=== PATIENT | female | born 1965 | race Caucasian/White ===

== ENCOUNTER 2017-02-25 14:32 | Emergency (ER) | payer OTHER ==
[~2017-02-25] VITALS: Ht 160 cm; Wt 78.5 kg
[~2017-02-25 14:32] MED LIST: COZ50 PO; MONT10TA35 PO; NIFE60TE8 PO
[2017-02-25 14:37] VITALS: BP 138/101
--- NOTE | 2017-02-25 14:37 | NUR ---
Pt w/c assisted to bed 8.
--- NOTE | 2017-02-25 14:41 | NUR ---
51/F c/o left knee pain x 1 day, started yesterday. Denies injury or trauma. Pt is scheduled to have a knee replacement 04/09/17. Pt states "My knee locked and I can't take the pain." AOX4. VSS.
--- NOTE | 2017-02-25 14:54 | NUR ---
Dr. Liang evaluating patient at bedside.
[2017-02-25] MEDS ORDERED: KETOROLAC 60 MG/2 ML VIAL IM ONE (15:00)
[2017-02-25 16:30] VITALS: BP 158/102
--- NOTE | 2017-02-25 16:31 | NUR ---
Patient discharged with v/s stable. Written and verbal after care instructions given and explained. Patient alert, oriented and verbalized understanding of instructions. Wheel Chair Assisted with by parent. All questions addressed prior to discharge. ID band removed. Patient advised to follow up with PMD. Rx of NORCO AND NAPROSYN given. Patient educated on indication of medication including possible reaction and side effects. Opportunity to ask questions provided and answered.
== END 2017-02-25 16:31 | disposition home or self-care (01) ==
LOC: MED 14:32
DX: M25.462 Effusion, left knee (principal); M17.12 Unilateral primary osteoarthritis, left knee; I10 Essential (primary) hypertension
CPT/HCPCS: 96372; 99283; J1885

== ENCOUNTER 2020-03-13 18:23 | Emergency (ER) | payer OTHER ==
[~2020-03-13] VITALS: Ht 160 cm; Wt 81.6 kg
[~2020-03-13 18:23] MED LIST changes: -COZ50 PO; +LOSA50TA57 PO; +NIFE60TA39 PO; -NIFE60TE8 PO
[2020-03-13 18:27] VITALS: BP 150/105
--- NOTE | 2020-03-13 18:41 | NUR ---
WAIT AT LOBBY.
[2020-03-13 19:49] LABS: BASOPHILS % (AUTO) 0.5 % (0.0-2.0); EOSINOPHILS # (AUTO) 0.3 K/uL (0-0.4); HEMATOCRIT 38.6 % (36-48); HEMOGLOBIN 12.9 g/dL (12.0-16.0); LYMPHOCYTES # (AUTO) 2.2 K/uL (2.5-16.5); LYMPHOCYTES % (AUTO) 33.6 % (20.5-51.1); MEAN CORPUSCULAR HEMOGLOBIN 29 pg (27-31); MEAN CORPUSCULAR HGB CONC 34 g/dL (33-37); MEAN CORPUSCULAR VOLUME 87.8 fL (80-94); MONOCYTES # (AUTO) 0.7 K/uL (0.8-1.0); MONOCYTES % (AUTO) 10.5 % (1.7-9.3); NEUTROPHILS # (AUTO) 3.3 K/uL (1.8-7.7); NEUTROPHILS % (AUTO) 50.4 % (42.2-75.2); PLATELET COUNT (AUTO) 215 K/uL (140-450); RED CELL DISTRIBUTION WIDTH 13.9 % (11.6-13.7); WHITE BLOOD COUNT (AUTO) 6.6 K/uL (4.8-10.8)
[2020-03-13 20:07] LABS: ALBUMIN 3.8 g/dL (3.4-5.0); ANION GAP 11.1 (8-16); CARBON DIOXIDE 28.5 mmol/L (21-32); CREATININE 1.3 mg/dL (0.6-1.3); POTASSIUM 3.6 mmol/L (3.5-5.1); TOTAL BILIRUBIN 0.4 mg/dL (0.0-1.0)
--- NOTE | 2020-03-13 23:19 | NUR ---
TO ED 07, AMBULATORY.
--- NOTE | 2020-03-13 23:40 | NUR ---
54 Y/O FEMALE PRESENTED TO ED C/O GENERALIZED WEAKNESS X YESTERDAY PT STATES SHE WAS LAYING DOWN WATCHING TV W/ DAUGHTER AND SHE LOC X 20 SEC. PT DENIES FALLING OR HITTING HEAD. PT STATES SHE WAS OUTSIDE ALL DAY YESTERDAY AND IT WAS HOT OUT. PT STATES SHE HAS SALGADO AND NAUSEA. PT DENIES VOMITTING, FEVER, DIARRHEA , BODY ACHES , BLURRY VISION/DOUBLE VISION. PT STATES SHE IS HAVING SOB AND FEELS A PRESSURE , 8/10 PAIN ON HER CHEST. PT STATES SHE HAD TO TAKE HER EMERGENCY INHALER LAST NIGHT FOR THE SOB. PT STATES SHE HAD A SIMILAR EPISODE A "COUPLE OF YEARS AGO," BUT DOES NOT REMEMBER THE CAUSE. PT STATES SHE HAS TAKEN HER BP MEDS TODAY . PT STATES SHE TOOK EXCEEDRIN AT 1730 TODAY FOR THE PAIN. PT A.O X 4. PT BREATHING EVEN AND UNLABORED. PT RESTING IN BED , LOCKED AND IN LOWEST POSITION, HOB ELEVATED, SIDE RAIL X 2 FOR PT SAFETY. PT CONNECTED TO CLAIMS CONFIGURATION ANALYST, PULSE OX AND BP CUFF. PMH: HTN, MS X 6 YRS AGO, ASTHMA , RX: LOSARTAN NKA
--- NOTE | 2020-03-13 23:57 | NUR ---
Dr. Sanders examining patient.
[2020-03-14 01:50] VITALS: BP 116/64
--- NOTE | 2020-03-14 01:50 | NUR ---
Patient discharged with v/s stable. Written and verbal after care instructions given and explained. Patient verbalized understanding. Ambulatory with steady gait. All questions addressed prior to discharge. Advised to follow up with PMD.
== END 2020-03-14 01:50 | disposition home or self-care (01) ==
LOC: MED 18:23
DX: R55 Syncope and collapse (principal); I10 Essential (primary) hypertension; I46.9 Cardiac arrest, cause unspecified; R79.89 Other specified abnormal findings of blood chemistry; R74.0 Nonspecific elevation of levels of transaminase and lactic acid dehydrogenase [LDH]; Z96.659 Presence of unspecified artificial knee joint
CPT/HCPCS: 36415; 71045; 80053; 84484; 85025; 93005; 99285

== ENCOUNTER 2020-04-11 18:36 | Emergency (ER) | payer OTHER ==
[~2020-04-11] VITALS: Ht 160 cm; Wt 84.8 kg
[2020-04-11 18:45] VITALS: BP 170/104
--- NOTE | 2020-04-11 18:49 | NUR ---
54 Y/O FEMALE FROM HOME C/O LLQ PAIN SINCE THIS MORNING WITH NAUSEA AND VOMITING. PT STATES SHE TOOK EXCEDRIN AT 1300 WITH NO RELIEF OF PAIN. DENIES DIARRHEA. ABD SOFT, ROUND, TENDER TO PALP. BOWEL SOUNDS PRESENT X 4 QUAD. RR EVEN AND UNLABORED. PT PRESENTS HYPERTENSIVE. 10/10 SHARP PAIN. MEDHX: HTN
--- NOTE | 2020-04-11 18:50 | NUR ---
PT AMBULATED TO RESTROOM FOR COLLECTION OF URINE
--- NOTE | 2020-04-11 19:22 | NUR ---
REPORT GIVEN TO MARIA TERESA REAVES. TRANSFER OF CARE AT THIS TIME
--- NOTE | 2020-04-11 19:23 | NUR ---
ASSUEMD CARE OF PATIENT.
[2020-04-11] MEDS ORDERED: MORPHINE SULFATE 4 MG/ML SYR IM ONE (19:30)
[2020-04-11] MEDS ORDERED: ONDANSETRON 4 MG ODT PO ONE (19:30)
--- NOTE | 2020-04-11 19:36 | NUR ---
MEDICATED ORDERED FOR PAIN AND NAUSEA. WILL CONTINUE TO ASSESS PAIN AND N/V.
--- NOTE | 2020-04-11 19:50 | NUR ---
REPORTS RELIEF OF PAIN -- 01/28 POST MORPHINE. NO ACTIVE VOMITTING SINCE ZOFRAN ADMIN.
--- NOTE | 2020-04-11 20:39 | NUR ---
Patient discharged with v/s stable. Written and verbal after care instructions given and explained. Patient alert, oriented and verbalized understanding of instructions. Ambulatory with steady gait. All questions addressed prior to discharge. ID band removed. Patient advised to follow up with PMD. Rx of ZOFRAN, NORCO, MOTRIN given. Patient educated on indication of medication including possible reaction and side effects. Opportunity to ask questions provided and answered.
== END 2020-04-11 20:39 | disposition home or self-care (01) ==
LOC: MED 18:36
DX: R10.12 Left upper quadrant pain (principal); R11.2 Nausea with vomiting, unspecified; I10 Essential (primary) hypertension; I51.89 Other ill-defined heart diseases; J45.909 Unspecified asthma, uncomplicated; Z90.711 Acquired absence of uterus with remaining cervical stump; Z90.49 Acquired absence of other specified parts of digestive tract; Z79.899 Other long term (current) drug therapy
CPT/HCPCS: 96372; 99283; J2270; Q0162

== ENCOUNTER 2020-07-07 08:01 | Emergency (ER) | payer OTHER ==
[~2020-07-07] VITALS: Ht 160 cm; Wt 84.8 kg
[2020-07-07 08:11] VITALS: BP 156/94
--- NOTE | 2020-07-07 08:15 | NUR ---
PATIENT WHEELCHAIR ASSISTED TO BED 7.
--- NOTE | 2020-07-07 08:15 | NUR ---
W/C ASSIST TO BED 07
--- NOTE | 2020-07-07 08:17 | NUR ---
55/F C/O SHARP LLQ PAIN RAD TO LEFT LOW BACK X YESTERDAY MORNING. PAIN WORSENED THIS MORNING PROMPTING PT TO COME TO ER. DENIES DYSURIA, HEMATURIA, DIARRHEA. STATES URINARY FREQUENCY (6X URINATION LAST NIGHT). STATES NAUSEA WITHOUT VOMITING. W/C ASSIST TO BED 07 FROM TRIAGE DUE TO C/O UNABLE TO AMBULATE DUE TO PAIN. STATES SHARP PAIN OF 10/10 AT THIS TIME. VSS. HX- HTN NKA
--- NOTE | 2020-07-07 08:21 | NUR ---
DR. ROSAS EVALUATING PT AT BEDSIDE
[2020-07-07] MEDS ORDERED: KETOROLAC 30 MG/ML VIAL IVP ONE (08:25)
[2020-07-07] MEDS ORDERED: ONDANSETRON 4 MG/2 ML VIAL IVP ONE (08:25)
[2020-07-07] MEDS ORDERED: NACL 0.9% 1,000 ML IV SCH (08:25)
[2020-07-07] MEDS ORDERED: MORPHINE SULFATE 4 MG/ML SYR IVP ONE (08:25)
[2020-07-07 08:46] LABS: BASOPHILS # (AUTO) 0.1 K/uL (0.00-0.22); BASOPHILS % (AUTO) 0.5 % (0.0-2.0); EOSINOPHILS # (AUTO) 0.4 K/uL (0-0.4); EOSINOPHILS % (AUTO) 3.7 % (0.0-4.0); HEMATOCRIT 39.4 % (36-48); HEMOGLOBIN 13.3 g/dL (12.0-16.0); LYMPHOCYTES # (AUTO) 2.6 K/uL (2.5-16.5); LYMPHOCYTES % (AUTO) 22.4 % (20.5-51.1); MEAN CORPUSCULAR HEMOGLOBIN 29 pg (27-31); MEAN CORPUSCULAR HGB CONC 34 g/dL (33-37); MEAN CORPUSCULAR VOLUME 84.8 fL (80-94); MONOCYTES # (AUTO) 0.9 K/uL (0.8-1.0); NEUTROPHILS # (AUTO) 7.7 K/uL (1.8-7.7); NEUTROPHILS % (AUTO) 65.4 % (42.2-75.2); PLATELET COUNT (AUTO) 223 K/uL (140-450); RED BLOOD CELL COUNT(AUTO) 4.64 MIL/uL (4.20-5.40); RED CELL DISTRIBUTION WIDTH 13.5 % (11.6-13.7); WHITE BLOOD COUNT (AUTO) 11.7 K/uL (4.8-10.8)
--- NOTE | 2020-07-07 09:11 | NUR ---
BACK TO BED [address] SCAN VIA [facility]
[2020-07-07 09:31] LABS: APPEARANCE,URINE CLEAR (CLEAR); BILIRUBIN,URINE NEGATIVE (NEGATIVE); COLOR,URINE YELLOW (YELLOW); LEUKOCYTE ESTERASE ,URINE NEGATIVE (NEGATIVE); NITRITE, URINE NEGATIVE (NEGATIVE); PH,URINE 5.5 (5.0-9.0); UGLUCOSE NEGATIVE (NEGATIVE)
[2020-07-07 09:37] LABS: ALBUMIN 4.1 g/dL (3.4-5.0); ANION GAP 17.2 (8-16); CARBON DIOXIDE 21.3 mmol/L (21-32); CREATININE 1.2 mg/dL (0.6-1.3); POTASSIUM 3.5 mmol/L (3.5-5.1); TOTAL BILIRUBIN 0.7 mg/dL (0.0-1.0)
[2020-07-07 09:46] LABS: BLOOD, URINE 1+ (NEGATIVE); RBC,URINE 0-5 /HPF (0-5); WBC,URINE 0-5 /HPF (0-5)
--- NOTE | 2020-07-07 09:56 | NUR ---
DR. ROSAS RE-EVALUATING PT AT BEDSIDE
[2020-07-07] MEDS ORDERED: metroNIDAZOLE 500 MG/NS PREMIX 100 ML IV ONE (10:05)
[2020-07-07] MEDS ORDERED: HYDROcodone/APAP 5/325 MG 1 TAB TAB PO ONE (10:05)
[2020-07-07] MEDS ORDERED: cefTRIAXone 1,000 MG VIAL ONE (10:07)
--- NOTE | 2020-07-07 12:25 | NUR ---
Patient discharged with v/s stable. Written and verbal after care instructions given and explained. Patient alert, oriented and verbalized understanding of instructions. Ambulatory with steady gait. All questions addressed prior to discharge. ID band removed. Patient advised to follow up with PMD. Rx of CIPRO, FLAGYL, COLACE, NORCO given. Patient educated on indication of medication including possible reaction and side effects. Opportunity to ask questions provided and answered.
[2020-07-07 12:26] VITALS: BP 146/80
== END 2020-07-07 12:25 | disposition home or self-care (01) ==
LOC: MED 08:01
DX: K57.92 Diverticulitis of intestine, part unspecified, without perforation or abscess without bleeding (principal); I51.89 Other ill-defined heart diseases; I10 Essential (primary) hypertension; Z79.899 Other long term (current) drug therapy; Z90.49 Acquired absence of other specified parts of digestive tract
CPT/HCPCS: 36415; 74176; 80053; 81001; 85025; 96361; 96365; 96367; 96375; 99284; J0696; J1885; J2270; J2405; J3490; J7030; 96366

== ENCOUNTER 2021-11-28 16:52 | Emergency (ER) | payer OTHER ==
[~2021-11-28] VITALS: Ht 157.5 cm; Wt 85.3 kg
[2021-11-28 16:55] VITALS: BP 153/104
--- NOTE | 2021-11-28 17:11 | NUR ---
Patient ambulated to bed 07 with steady/even gait.
--- NOTE | 2021-11-28 17:27 | NUR ---
56 y/o F BIB self from home c/o dizziness, nausea/vomiting x 2 days and intermittent headaches for the last week. Patient A&Ox4, ambulatory, reports R temporal headache 9/10, sharp/intermittent, non-radiating pain. Pt also reports 2 episodes of vomiting this morning. States dizziness worsens when sitting up/ambulating. Pt states hx of migraine headaches and states symptoms feel different from previous SALGADO symptoms. Pt denies chest pain, abdominal pain, fever, chills, diarrhea, constipation, cold-like symptoms. Denies medications prior to arrival; reports Excedrin yesterday with relief to headache. Pt compliant with BP medications. Pt placed into a gown and yeast stacker. BP 162/103. States seen at [facility] for cardiac issues that she is unable to recall. Bed locked in lowest position, side rails x 1. PMH: HTN, migraine headaches Meds: chlorthalidone, losartan NKDA Sx: R knee sx 5 yrs ago
--- NOTE | 2021-11-28 18:05 | NUR ---
Patient ambulated to restroom with steady/even gait.
--- NOTE | 2021-11-28 18:36 | NUR ---
Dr. Baez is evaluating pt at bedside
[2021-11-28] MEDS ORDERED: MECLIZINE 25 MG TAB PO ONE ×2 (18:45→21:05)
--- NOTE | 2021-11-28 18:49 | NUR ---
Lab at bedside
--- NOTE | 2021-11-28 19:05 | NUR ---
EMT at bedside for EKG
[2021-11-28 19:06] LABS: BASOPHILS # (AUTO) 0.1 K/uL (0.00-0.22); EOSINOPHILS # (AUTO) 0.2 K/uL (0-0.4); EOSINOPHILS % (AUTO) 2.8 % (0.0-4.0); HEMATOCRIT 38.7 % (36-48); LYMPHOCYTES # (AUTO) 2.1 K/uL (2.5-16.5); LYMPHOCYTES % (AUTO) 32.6 % (20.5-51.1); MEAN CORPUSCULAR HEMOGLOBIN 29 pg (27-31); MEAN CORPUSCULAR HGB CONC 34 g/dL (33-37); MEAN CORPUSCULAR VOLUME 86.7 fL (80-94); MONOCYTES # (AUTO) 0.4 K/uL (0.8-1.0); MONOCYTES % (AUTO) 6.7 % (1.7-9.3); NEUTROPHILS # (AUTO) 3.7 K/uL (1.8-7.7); NEUTROPHILS % (AUTO) 56.9 % (42.2-75.2); PLATELET COUNT (AUTO) 211 K/uL (140-450); RED BLOOD CELL COUNT(AUTO) 4.46 MIL/uL (4.20-5.40); RED CELL DISTRIBUTION WIDTH 13.5 % (11.6-13.7); WHITE BLOOD COUNT (AUTO) 6.5 K/uL (4.8-10.8)
--- NOTE | 2021-11-28 19:17 | NUR ---
Report and transfer of care endorsed to PINO Weinberg.
[2021-11-28 19:28] LABS: ALBUMIN 3.9 g/dL (3.4-5.0); ANION GAP 11.7 (8-16); CARBON DIOXIDE 27.1 mmol/L (21-32); CREATININE 1.1 mg/dL (0.6-1.3); MAGNESIUM 1.8 mg/dL (1.8-2.4); POTASSIUM 3.8 mmol/L (3.5-5.1); TOTAL BILIRUBIN 0.6 mg/dL (0.0-1.0)
[2021-11-28] MEDS ORDERED: LOSARTAN 50 MG TAB PO ONE (19:55)
[2021-11-28] MEDS ORDERED: ACETAMINOPHEN EXTRA STRENGTH 500 MG TAB PO ONE (19:55)
[2021-11-28] MEDS ORDERED: MECL-303 PO (19:59)
[2021-11-28 21:13] VITALS: BP 129/72
--- NOTE | 2021-11-28 21:13 | NUR ---
Patient discharged with v/s stable. Written and verbal after care instructions given and explained. Patient alert, oriented and verbalized understanding of instructions. Ambulatory with steady gait. All questions addressed prior to discharge. ID band removed. Patient advised to follow up with PMD. Rx of meclizine given. Opportunity to ask questions provided and answered.
== END 2021-11-28 21:13 | disposition home or self-care (01) ==
LOC: MED 16:52
DX: R42 Dizziness and giddiness (principal); R51.9 Headache, unspecified; R11.0 Nausea; I10 Essential (primary) hypertension; F32.9 Major depressive disorder, single episode, unspecified; F41.9 Anxiety disorder, unspecified; J45.909 Unspecified asthma, uncomplicated; I25.2 Old myocardial infarction; Z79.899 Other long term (current) drug therapy
CPT/HCPCS: 36415; 80053; 83735; 84484; 85025; 93005; 99285; J8597

== ENCOUNTER 2022-02-19 15:11 | Emergency (ER) | payer OTHER ==
[~2022-02-19] VITALS: Ht 160 cm; Wt 81.6 kg
[~2022-02-19 15:11] MED LIST changes: +MECL-303 PO
[2022-02-19 15:38] VITALS: BP 161/102
--- NOTE | 2022-02-19 17:03 | NUR ---
PT W/C ASSISTED TO BED 2.
--- NOTE | 2022-02-19 17:05 | NUR ---
56Y FEMALE BIB SELF C/O RIGHT HIP PAIN X 8 DAYS. PT UNABLE TO AMBULATE DUE TO PAIN. PT IS ABLE TO STAND, BUT UNABLE TO PUT PRESSURE ON R LEG. PMH: HTN, LEFT KNEE SURGERY. DENIES N/V/D; SKIN IS PINK/WARM/DRY; AAOX4 WITH EVEN . LUNGS CLEAR BL; HR EVEN AND REGULAR; PT DENIES ANY FEVER, CP, SOB, OR COUGH AT THIS TIME; PATIENT STATES PAIN OF 10/10 AT THIS TIME. PATIENT POSITIONED FOR COMFORT; HOB ELEVATED; BEDRAILS UP X1; BED DOWN. ER MD MADE AWARE OF PT STATUS.
--- NOTE | 2022-02-19 17:12 | NUR ---
Patient being evaluated by physician at bedside.
[2022-02-19] MEDS ORDERED: KETOROLAC 30 MG/ML VIAL IM ONE (17:15)
[2022-02-19] MEDS ORDERED: HYDROcodone/APAP 5/325 MG 1 TAB TAB PO ONE (17:15)
[2022-02-19] MEDS ORDERED: ACETAMINOPHEN 325 MG TAB PO ONE (17:15)
--- NOTE | 2022-02-19 19:07 | NUR ---
ATTEMPTED TO MOVE PT TO A CHAIR FOR EMERGENCY PATIENT ARRIVING. PT REFUSING TO GET OUT OF BED STATING SHES IN TOO MUCH PAIN/ UNABLE TO SIT IN CHAIR. DR DELONG MADE AWARE, AT BEDSIDE EXPLAINING.
[2022-02-19] MEDS ORDERED: MORPHINE SULFATE 4 MG/ML SYR IM ONE (19:10)
--- NOTE | 2022-02-19 19:20 | NUR ---
PT TAKENTO RADIOLOGY
[2022-02-19] MEDS ORDERED: NAPR-54 PO (20:07)
[2022-02-19] MEDS ORDERED: METH4TAB1 PO (20:07)
--- NOTE | 2022-02-19 20:34 | NUR ---
Patient discharged with v/s stable. Written and verbal after care instructions given and explained. Patient alert, oriented and verbalized understanding of instructions. Ambulatory with steady gait. All questions addressed prior to discharge. ID band removed. Patient advised to follow up with PMD. Rx of NAPROXEN AND MEDROL given. Patient educated on indication of medication including possible reaction and side effects. Opportunity to ask questions provided and answered.
== END 2022-02-19 20:34 | disposition home or self-care (01) ==
LOC: MED 15:11
DX: M54.31 Sciatica, right side (principal); J45.909 Unspecified asthma, uncomplicated; I10 Essential (primary) hypertension; I25.2 Old myocardial infarction; Z98.890 Other specified postprocedural states; Z79.1 Long term (current) use of non-steroidal anti-inflammatories (NSAID); Z79.899 Other long term (current) drug therapy
CPT/HCPCS: 73502; 74176; 81002; 81025; 96372; 99284; J1885; J2270

== ENCOUNTER 2024-06-27 20:18 | Emergency (ER) | payer OTHER ==
[~2024-06-27] VITALS: Ht 157.5 cm; Wt 82.2 kg
[~2024-06-27 20:18] MED LIST changes: +METH4TAB1 PO; +MONT-72 PO; -MONT10TA35 PO; +NAPR-337 PO
[2024-06-27 20:39] VITALS: BP 167/92; PULSE 72; RESP 18; TEMP 98.2; O2SAT 97
[2024-06-27] MEDS: ONDANSETRON 4 MG/2 ML VIAL IVP ONE (21:42)
[2024-06-27 21:43] LABS: APPEARANCE,URINE CLEAR (CLEAR); BILIRUBIN,URINE NEGATIVE (NEGATIVE); BLOOD, URINE 1+ (NEGATIVE); COLOR,URINE YELLOW (YELLOW); LEUKOCYTE ESTERASE ,URINE NEGATIVE (NEGATIVE); NITRITE, URINE NEGATIVE (NEGATIVE); PROTEIN,URINE 1+ (NEGATIVE); UGLUCOSE NEGATIVE (NEGATIVE); UROBILINOGEN,URINE 0.2 EU/dL (0.2 - 1)
[2024-06-27] MEDS: NACL 0.9% 1,000 ML IV ONE (21:43)
[2024-06-27] MEDS: MORPHINE SULFATE 4 MG/ML SYR IVP ONE (21:43)
[2024-06-27 21:49] LABS: BACTERIA,URINE FEW /HPF (None Seen); SQUAMOUS EPITHELIAL CELL,UR 4-10 (MOD) /LPF (0-3 (FEW)); WBC,URINE 0-5 /HPF (0-5)
[2024-06-27 22:18] LABS: BASOPHILS % (AUTO) 0.3 % (0.0-2.0); EOSINOPHILS # (AUTO) 0.2 K/uL (0-0.4); EOSINOPHILS % (AUTO) 2.8 % (0.0-4.0); HEMATOCRIT 39.7 % (36-48); HEMOGLOBIN 13.5 g/dL (12.0-16.0); LYMPHOCYTES # (AUTO) 2.4 K/uL (2.5-16.5); LYMPHOCYTES % (AUTO) 30.1 % (20.5-51.1); MEAN CORPUSCULAR HEMOGLOBIN 29 pg (27-31); MEAN CORPUSCULAR HGB CONC 34 g/dL (33-37); MONOCYTES # (AUTO) 0.6 K/uL (0.8-1.0); MONOCYTES % (AUTO) 7.8 % (1.7-9.3); NEUTROPHILS # (AUTO) 4.7 K/uL (1.8-7.7); PLATELET COUNT (AUTO) 223 K/uL (140-450); RED BLOOD CELL COUNT(AUTO) 4.62 MIL/uL (4.20-5.40); RED CELL DISTRIBUTION WIDTH 13.9 % (11.6-13.7); WHITE BLOOD COUNT (AUTO) 7.9 K/uL (4.8-10.8)
[2024-06-27 22:31] LABS: CALCIUM 9.9 mg/dL (8.5-10.1); CARBON DIOXIDE 25.1 mmol/L (21-32); CREATININE 1.9 mg/dL (0.6-1.3); POTASSIUM 3.1 mmol/L (3.5-5.1)
[2024-06-27 22:37] LABS: ALBUMIN 3.9 g/dL (3.4-5.0); BILIRUBIN,DIRECT 0.1 mg/dL (0.0-0.3); TOTAL BILIRUBIN 0.6 mg/dL (0.0-1.0); TOTAL PROTEIN, SERUM 7.9 g/dL (6.4-8.2)
[2024-06-28] MEDS ORDERED: HYDR-2853 PO (02:07)
[2024-06-28] MEDS ORDERED: AMLO5TAB PO (02:07)
[2024-06-28] MEDS: ENALAPRILAT 2.5 MG/2 ML VIAL IVP ONE (02:12)
[2024-06-28] MEDS: hydrALAZINE 20 MG/ML VIAL IVP ONE (02:53)
[2024-06-28] MEDS ORDERED: HYDR-1098 PO (04:22)
[2024-06-28 04:35] VITALS: BP 112/80; PULSE 58; RESP 17; TEMP 98; O2SAT 98
== END 2024-06-28 04:35 | disposition home or self-care (01) ==
LOC: MED 20:18
DX: R10.32 Left lower quadrant pain (principal); R50.9 Fever, unspecified; I12.9 Hypertensive chronic kidney disease with stage 1 through stage 4 chronic kidney disease, or unspecified chronic kidney disease; N18.9 Chronic kidney disease, unspecified; Z79.899 Other long term (current) drug therapy
CPT/HCPCS: 36415; 74176; 80048; 80076; 81001; 82150; 83690; 85025; 87040; 96361; 96374; 96375; 99285; J0360; J2270; J2405; J3490; J7030